=== PATIENT | male | born 1955 | race Caucasian/White ===

== ENCOUNTER 2016-08-14 10:48 | Emergency (ER) | payer OTHER ==
[2016-08-14] MEDS ORDERED: NS 0.9% 1000 ML* 1,000 ML IV SCH ×2 (11:00→15:15)
[2016-08-14 11:34] LABS: Hematocrit 46 % (42-52); Hemoglobin 15.6 g/dl (14.0-18.0); Mean Corpuscular HGB Conc 34 g/dl (31-36); Mean Corpuscular Hemoglobin 30 pg (27-31); Mean Corpuscular Volume 90 fL (80-94); Mean Platelet Volume 8 um3 (7.4-10.4); Red Blood Count 5.14 10^6/ul (4.0-5.4); Red Cell Distribution Width 13 % (10.5-15); White Blood Count 6.3 10^3/ul (3.5-10.8)
[2016-08-14 11:50] LABS: ALT 37 U/L (7-52); AST 23 U/L (13-39); Albumin 4.3 g/dL (3.2-5.2); Alkaline Phosphatase 88 U/L (34-104); Anion Gap 8 mmol/L (2-11); BUN/Creatinine Ratio 17.2 (8-20); Blood Urea Nitrogen 15 mg/dL (6-24); C Reactive Protein < 1.00 mg/L (< 5.00); CO2 Carbon Dioxide 23 mmol/L (22-32); Calcium 9.6 mg/dL (8.6-10.3); Chloride 104 mmol/L (101-111); Creatine Kinase 307 U/L (10-223); EGFR African American 114.7 (>60); EGFR Non-African American 89.2 (>60); Globulin 2.7 g/dL (2-4); Glucose 105 mg/dL (70-100); Lipase 17 U/L (11.0-82.0); Magnesium 1.9 mg/dL (1.9-2.7); Potassium 4.3 mmol/L (3.5-5.0); Sodium 135 mmol/L (133-145)
[2016-08-14 12:18] LABS: TSH (Thyroid Stimulating Horm) 3.72 mcIU/mL (0.34-5.60)
--- NOTE | 2016-08-14 12:33 | RAD ---
INDICATION: Palpitations COMPARISON: April 05, 2016 TECHNIQUE: An AP portable view obtained at 1145 hours is submitted. FINDINGS: Bones/Soft Tissues: There are no acute bony findings. Cardiomediastinal: The cardiomediastinal silhouette is normal. Lungs: There are no infiltrates. Pleura: There are no pleural effusions. Other: None IMPRESSION: NORMAL CHEST.
--- NOTE | 2016-08-14 14:40 | ED ---
Antonio Higgins Erika, scribed for Brenda Wood MD on 08/14/16 at 1356 . Palpitations / Dysrhythmia - HPI Summary HPI Summary: Patient is a 61-year-old male presenting to the ED with his daughter with a CC of palpitations. Pt was sent to ED from cardiac rehab. Patient reports that he had an elective cardiac catheterization in March 2016 and had [address] Flores and Dr. Caldwell. Patient has followed up with Dr. Caldwell since then, and has been in cardiac rehab. Pt states approx 1month ago his toprol dose was increased 25mg to 50mg for PVC. Today, patient walked into cardiac rehab, and the tech noticed his HR was 115, so patient was sent to the ED. He states he has felt palpitations. Pt does admit to intermittent headaches associated with lightheadedness today which spontaneously resolve, as well as fatigue, SOB with exertion, and weakness. Patient also reports a few days ago developed myalgias in the chest and shoulders as well - he states soreness is not associated with activity, and prevented him from sleeping. He states feels like muscles are sore. Pt also notes decreased appetite the past few days. Today, pt reports that his chest pain is brought on by moving his arms - he feels pain in the right anterior chest and in the bilateral shoulders. Pt states this pain, SOB, and fatigue made it difficult to work today , as pt has to lift heavy things at work. Patient denies diarrhea. He states he has been taking his medications, which are metoprolol, brilinta, and lipitor, which he started taking after the cardiac cath. At triage pt was reported to have a variable HR 38-98 Pt also notes diffuse bruises recently. FHx - father of [place] at age 50, brother at 61. Patient quit smoking 12 years ago, and occasionally drinks. - History of Current Complaint Chief Complaint: EDDysrhythmPalp Time Seen by Provider: 08/14/16 13:36 Hx Obtained From: Patient, Family/Light Cleaner - Daughter Onset/Duration: Lasting Hours, Still Present Timing: Intermittent Episodes Lasting: - minutes Severity Currently: Moderate Character: Fast, Pounding Associated Signs & Symptoms: Lightheadedness, Chest Pain, Shortness of Breath - Risk Factors Cardiac: Hypertension - Allergy/Home Medications Allergies/Adverse Reactions: Allergies Allergy/AdvReac Type Severity Reaction Status Date / Time No Known Allergies Allergy Verified 08/05/14 15:24 Home Medications: Home Medications Metoprolol Succinate XL TAB* [Toprol XL TAB*] 25 mg PO BID 08/14/16 [History Confirmed 08/14/16] Ticagrelor* [Brilinta 90 MG*] 90 mg PO BID 08/14/16 [History Confirmed 08/14/16] PMH/Surg Hx/FS Hx/Imm Hx Endocrine/Hematology History: Reports: Hx Anticoagulant Therapy - Berlinta Denies: Hx Thyroid Disease, Hx Anemia, Hx Unexplained Bleeding Cardiovascular History: Reports: Hx Angioplasty, Hx Coronary Artery Disease - with stents, Hx Deep Vein Thrombosis - superficial vein L leg 2012, Hx Hypercholesterolemia Opthamlomology History: Reports: Hx Contacts or Glasses - glasses for reading, Other Sensory Impairments - Tinnitus, right ear Denies: Hx Cataracts, Hx Eye Injury, Hx Eye Prosthesis, Hx Glaucoma, Hx Legally Blind, Hx Macular Degeneration, Hx Vision Problem - Surgical History Surgery Procedure, Year, and Place: Cardiac stents Mar 2016 Infectious Disease History: No Infectious Disease History: Denies: Hx Clostridium Difficile, Hx Hepatitis, Hx Human Immunodeficiency Virus (HIV), Hx of Known/Suspected MRSA, Hx Shingles, Hx Tuberculosis, History Other Infectious Disease, Traveled Outside the [place] in Last 30 Days - Family History Known Family History: Positive: Cardiac Disease - Social History Occupation: Employed Part-time Alcohol Use: Rare Hx Substance Use: No Substance Use Type: Reports: None Hx Tobacco Use: Yes Smoking Status (MU): Former Smoker Type: Cigarettes Review of Systems Positive: Fatigue Eyes: Negative ENT: Negative Positive: Palpitations, Chest Pain Positive: Shortness Of Breath. Negative: Cough Positive: Other - decreased appetite. Negative: Diarrhea Genitourinary: Negative Positive: Myalgia - diffuse Positive: Bruising Neurological: Other - lightheadedness Positive: Headache, Weakness Psychological: Normal All Other Systems Reviewed And Are Negative: Yes Physical Exam Triage Information Reviewed: Yes Vital Signs On Initial Exam: Initial Vitals Temp Pulse Resp BP Pulse Ox 98.1 F 93 18 114/69 100 08/14/16 10:51 08/14/16 10:51 08/14/16 10:51 08/14/16 10:51 08/14/16 10:51 Vital Signs Reviewed: Yes Appearance: Positive: Well-Appearing, No Pain Distress Skin: Positive: Warm, Skin Color Reflects Adequate Perfusion, Dry, Other - Pt with ecchymosis to right knee, right elbow, left humerus - various stages Head/Face: Positive: Normal Head/Face Inspection Eyes: Positive: Normal, EOMI, AJ ENT: Positive: Hearing grossly normal, Pharynx normal Neck: Positive: Supple, Nontender, No Lymphadenopathy Respiratory/Lung Sounds: Positive: Clear to Auscultation, Breath Sounds Present. Negative: Wheezes Cardiovascular: Positive: Normal, RRR. Negative: Murmur Abdomen Description: Positive: Nontender, No Organomegaly, Soft Bowel Sounds: Positive: Present Musculoskeletal: Positive: Normal, Strength/ROM Intact Neurological: Positive: Normal, Sensory/Motor Intact, Alert, Oriented to Person Place, Time Psychiatric: Positive: Normal, Affect/Mood Appropriate AVPU Assessment: Alert - [place] Coma Scale Best Eye Response: 4 - Spontaneous Best Motor Response: 6 - Obeys Commands Best Verbal Response: 5 - Oriented Coma Scale Total: 15 Diagnostics - Vital Signs Vital Signs Temp Pulse Resp BP Pulse Ox 08/14/16 11:49 98.1 F 98 16 100/75 97 08/14/16 11:30 70 17 100/75 98 08/14/16 11:20 92 15 99 08/14/16 11:18 101/59 08/14/16 10:51 98.1 F 93 18 114/69 100 - Laboratory Lab Results: Lab Results 08/14/16 08/14/16 08/14/16 Range/Units 11:22 11:22 11:22 WBC 6.3 (3.5-10.8) 10^3/ul RBC 5.14 (4.0-5.4) 10^6/ul Hgb 15.6 (14.0-18.0) g/dl Hct 46 (42-52) % MCV 90 (80-94) fL MCH 30 (27-31) pg MCHC 34 (31-36) g/dl RDW 13 (10.5-15) % Plt Count 234 (150-450) 10^3/ul MPV 8 (7.4-10.4) um3 Neut % (Auto) 71.3 (38-83) % Lymph % (Auto) 16.7 L (25-47) % Wharton % (Auto) 10.9 H (1-9) % Eos % (Auto) 0.7 (0-6) % Baso % (Auto) 0.4 (0-2) % Absolute Neuts (auto) 4.5 (1.5-7.7) 10^3/ul Absolute Lymphs (auto) 1.0 (1.0-4.8) 10^3/ul Absolute Monos (auto) 0.7 (0-0.8) 10^3/ul Absolute Eos (auto) 0 (0-0.6) 10^3/ul Absolute Basos (auto) 0 (0-0.2) 10^3/ul Absolute Nucleated RBC 0 10^3/ul Nucleated RBC % 0 INR (Anticoag Therapy) 0.98 (0.89-1.11) APTT 27.0 (26.0-36.3) seconds D-Dimer, Quantitative < 200 (Less Than 230) ng/mL Sodium 135 (133-145) mmol/L Potassium 4.3 (3.5-5.0) mmol/L Chloride 104 (101-111) mmol/L Carbon Dioxide 23 (22-32) mmol/L Anion Gap 8 (2-11) mmol/L BUN 15 (6-24) mg/dL Creatinine 0.87 (0.67-1.17) mg/dL Est GFR ( Amer) 114.7 (>60) Est GFR (Non-Af Amer) 89.2 (>60) BUN/Creatinine Ratio 17.2 (8-20) Glucose 105 H (70-100) mg/dL Lactic Acid (0.5-2.0) mmol/L Calcium 9.6 (8.6-10.3) mg/dL Magnesium 1.9 (1.9-2.7) mg/dL Total Bilirubin 1.10 H (0.2-1.0) mg/dL AST 23 (13-39) U/L ALT 37 (7-52) U/L Alkaline Phosphatase 88 (34-104) U/L Total Creatine Kinase 307 H (10-223) U/L CK-MB (CK-2) 5.5 (0.6-6.3) ng/mL Troponin I 0.00 (<0.04) ng/mL C-Reactive Protein < 1.00 (< 5.00) mg/L B-Natriuretic Peptide ( - 100) pg/mL Total Protein 7.0 (6.4-8.9) g/dL Albumin 4.3 (3.2-5.2) g/dL Globulin 2.7 (2-4) g/dL Albumin/Globulin Ratio 1.6 (1-3) Lipase 17 (11.0-82.0) U/L TSH 3.72 (0.34-5.60) mcIU/mL 08/14/16 08/14/16 Range/Units 11:22 11:22 WBC (3.5-10.8) 10^3/ul RBC (4.0-5.4) 10^6/ul Hgb (14.0-18.0) g/dl Hct (42-52) % MCV (80-94) fL MCH (27-31) pg MCHC (31-36) g/dl RDW (10.5-15) % Plt Count (150-450) 10^3/ul MPV (7.4-10.4) um3 Neut % (Auto) (38-83) % Lymph % (Auto) (25-47) % Wharton % (Auto) (1-9) % Eos % (Auto) (0-6) % Baso % (Auto) (0-2) % Absolute Neuts (auto) (1.5-7.7) 10^3/ul Absolute Lymphs (auto) (1.0-4.8) 10^3/ul Absolute Monos (auto) (0-0.8) 10^3/ul Absolute Eos (auto) (0-0.6) 10^3/ul Absolute Basos (auto) (0-0.2) 10^3/ul Absolute Nucleated RBC 10^3/ul Nucleated RBC % INR (Anticoag Therapy) (0.89-1.11) APTT (26.0-36.3) seconds D-Dimer, Quantitative (Less Than 230) ng/mL Sodium (133-145) mmol/L Potassium (3.5-5.0) mmol/L Chloride (101-111) mmol/L Carbon Dioxide (22-32) mmol/L Anion Gap (2-11) mmol/L BUN (6-24) mg/dL Creatinine (0.67-1.17) mg/dL Est GFR ( Amer) (>60) Est GFR (Non-Af Amer) (>60) BUN/Creatinine Ratio (8-20) Glucose (70-100) mg/dL Lactic Acid 1.2 (0.5-2.0) mmol/L Calcium (8.6-10.3) mg/dL Magnesium (1.9-2.7) mg/dL Total Bilirubin (0.2-1.0) mg/dL AST (13-39) U/L ALT (7-52) U/L Alkaline Phosphatase (34-104) U/L Total Creatine Kinase (10-223) U/L CK-MB (CK-2) (0.6-6.3) ng/mL Troponin I (<0.04) ng/mL C-Reactive Protein (< 5.00) mg/L B-Natriuretic Peptide 130 H ( - 100) pg/mL Total Protein (6.4-8.9) g/dL Albumin (3.2-5.2) g/dL Globulin (2-4) g/dL Albumin/Globulin Ratio (1-3) Lipase (11.0-82.0) U/L TSH (0.34-5.60) mcIU/mL Result Diagrams: 08/14/16 11:22 08/14/16 11:22 Lab Statement: Any lab studies that have been ordered have been reviewed, and results considered in the medical decision making process. - Radiology CXR Radiology Interpretation Completed By: Radiologist - IMPRESSION: NORMAL CHEST. - EKG 11:00 Cardiac Rate: NL - at 99 bpm EKG Rhythm: Sinus Rhythm Ectopy: PVCs, PACs EKG Interpretation: No ST/T wave changes. Atrial pause Course/Dx - Course Assessment/Plan: Pt presents with complaint of body aches - chest wall, shoulder increasing over several days as well as fatigue, palpitations, and SOB. Pt states went to cardiac rehab today and was sent to ED - report of HR 115. Upon exam, pt states feels fatigue but no other complaints. I suspect mylagias may be related to lipitor. I spoke with Dr. Caldwell - states EKG at cardiac rehab was a fib. recommend admit, have cards eval pt -. tsh, trop, potassium, mag wnl - Diagnoses Provider Diagnoses: Palpitations, Myalgia - Physician Notifications Discussed Care Of Patient With: Dr. Caldwell (cardiology) at 14:21 - discussed case. recommends admission. Dr. Hart (hospitalist) at 14:24 - agrees to admit. Discharge - Discharge Plan Condition: Stable Disposition: ADMITTED TO [facility] Referrals: Asa Doll MD [Primary Care Provider] - The documentation as recorded by the Antonio kilpatrick Erika accurately reflects the service I personally performed and the decisions made by Israel cerna Laura, MD.
[2016-08-14] MEDS ORDERED: Al Hydrox/Mg Hydrox/Simet LIQ* 30 ML UDC PO PRN (15:04)
[2016-08-14] MEDS ORDERED: Magnesium Hydroxide LIQ* 30 ML UDC PO PRN (15:04)
[2016-08-14] MEDS ORDERED: Acetaminophen TAB* 325 MG PO PRN (15:04)
[2016-08-14] MEDS ORDERED: Temazepam CAP* 15 MG PO PRN (15:04)
[2016-08-14] MEDS ORDERED: Rivaroxaban TAB(*) 20 MG TAB PO SCH (16:00)
[2016-08-14 16:47] VITALS: BP 105/77
[2016-08-14] MEDS ORDERED: Ticagrelor* 90 MG TAB PO SCH (21:00)
[2016-08-14] MEDS ORDERED: Metoprolol Succinate XL TAB* 25 MG PO SCH (21:00)
[2016-08-14] MEDS ORDERED: Heparin VIAL(*) 5000 UNITS/ML VIAL (FIVE THOUSAND) SUBCUT SCH (22:00)
--- NOTE | 2016-08-14 22:46 | HP ---
ADDENDUM NOW INCLUDED ON THIS REPORT HISTORY AND PHYSICAL: DATE OF ADMISSION: 08/14/16 - EMERGENCY DEPT PRIMARY CARE PROVIDER: Dr. Doll. CHIEF COMPLAINT: "Fast heart rate." HISTORY OF PRESENT ILLNESS: Timbo Pompa is a 61-year-old male with a history of coronary artery disease and three stents placed in March [address] Flores who presents today complaining that a fast heart rate was noted on telemetry monitoring when he was preparing for cardiac rehab today. The patient stated he had been feeling tired for the past several days and he had noted myalgias. He stated that all of his muscles are sore including his shoulders and legs. He denies any shortness of breath or chest pain. He was today preparing to undergo cardiac rehab and when telemetry monitoring was checked on the patient, the patient was noted to be in atrial fibrillation with a heart rate in the 90s. When he presented to the ED, it was noted that his heart rate was in the 30s, but that was evaluated on pulse oximetry machine and it is possible that the pulse oximeter did not capture the heart beats due to atrial fibrillation. Nevertheless, the patient had been in fairly controlled heart rate in the 90s during the ED visit. His systolic pressures were in the low 100s. The patient is going to be placed on observation with a diagnosis of atrial fibrillation. PAST MEDICAL HISTORY: 1. Superficial vein thrombosis in 2005 in the left leg treated with Coumadin by Dr. Doll for 1 month. 2. Cardiac catheterization in March 2016, status post 3 stents, 1 placed in the LAD and 2 stents placed in the circumflex. 3. History of dyslipidemia. 4. History of hypertension. MEDICATIONS: Include: 1. Toprol-XL 25 mg daily. 2. Aspirin 81 mg daily. 3. Atorvastatin 40 mg daily. 4. Nitroglycerin on a p.r.n. basis. 5. Brilinta 90 mg twice a day. ALLERGIES: No known drug allergies. FAMILY HISTORY: Positive for father who of acute SC at the age of 90. Mother with a history of hypothyroidism. SOCIAL HISTORY: The patient denies any tobacco or drug use. He drinks rarely. 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 He is single and his daughter, Anuja, is his surrogate. REVIEW OF SYSTEMS: Please see history of present illness. All the remaining 14 systems were reviewed with the patient and were otherwise negative. PHYSICAL EXAMINATION GENERAL: This is a very pleasant 61-year-old male who is in no acute distress. Alert, awake, and oriented x3. VITAL SIGNS: Blood pressure of 103/64, heart rate of 96 and irregularly irregular, respiratory rate 16, oxygen saturation 98% on room air, and temperature of 98.1. HEENT: Head: Atraumatic, normocephalic. Eyes: Pupils equal, reactive to light and accommodation. Oropharynx clear. Mucosa moist. NECK: Supple. No JVD, no bruit bilaterally. RESPIRATORY: Clear to auscultation bilaterally. CARDIOVASCULAR: Irregularly irregular rhythm. No murmur. ABDOMEN: Soft, nontender. Bowel sounds present in all 4 quadrants. EXTREMITIES: There is no edema. Pulses are +2 bilaterally. No clubbing or cyanosis. NEUROLOGIC EVALUATION: Speech clear. Cranial nerves II through XII grossly intact. Motor strength is 5/5 bilaterally. LABORATORY DATA: Show a white blood cell count of 6.3, hemoglobin 15.6, hematocrit 46, and platelet count 234. D-dimer of below 200. PTT of 27, INR of 0.98. Sodium was 135, potassium 4.3, chloride 104, carbon dioxide 23, BUN 15, creatinine 0.87. Liver function tests are unremarkable apart from a mild elevation of total bilirubin of 4.1. Total CPK is 307. C-reactive protein of below 1. Troponin of 0. Brain natriuretic peptide was 130. Magnesium of 1.9. TSH of 3.72. EKG showed atrial fibrillation, heart rate of 99 beats per minute with PVC's. Portable chest x-ray, impression: "Normal chest." ASSESSMENT AND PLAN: A 61-year-old male with a history of coronary artery disease who presents with atrial fibrillation of unknown duration. The patient is symptomatic of myalgias and shortness of breath. I suspect the myalgias may be due to Lipitor. Discussed the case with Dr. Vazquez. The patient's CHADS-VASc score is 1. At this point, Dr. Vazquez recommended anticoagulation with Xarelto. The patient is also going to be continued on aspirin and Brilinta for his coronary artery disease. His Toprol-XL is going to be continued on a previous dose. The patient also is going to be placed on gentle hydration due to low systolic blood pressures. There is no electrolyte abnormality or TSH abnormality that predisposed this patient to atrial fibrillation. At this point, the patient will most likely undergo a MAURY cardioversion in the morning. In regards to the patient's coronary artery disease, currently asymptomatic. We will continue aspirin and Brilinta. For hypertension, his Toprol-XL is going to be continued. For DVT prophylaxis, the patient is going to be placed on Xarelto. Code status: The patient's code status is full and surrogate is his daughter. TIME SPENT: Approximately 65 minutes were spent on admission of this patient, more than half that time was spent [id number] with the patient during the interview and physical exam. ADDENDUM: Please note that the patient was seen by Dr. Vazquez in the emergency department and it was decided by the lab asst and the patient that the patient can be discharged and followed up by Dr. Vazquez as an outpatient with outpatient cardioversion. Dr. Vazquez already called in a prescription for Xarelto for the patient's pharmacy. As per Dr. Vazquez's recommendation, the remaining medications are unchanged apart from the addition of Xarelto at 20 mg daily. The patient is being discharged from the emergency department and he was never admitted. CC: Dr. Doll; Dr. Flores; Dr. Caldwell; Dr. Vazquez* [id number]/CPS #: [id number]/CPS #: [id number] [facility]
--- NOTE | 2016-08-14 23:03 | HP ---
HISTORY AND PHYSICAL:* ADDENDUM: Please note that the patient was seen by Dr. Vazquez in the emergency department and it was decided by the cotton machine operator and the patient that the patient can be discharged and followed up by Dr. Vazquez as an outpatient with outpatient cardioversion. Dr. Vazquez already called in a prescription for Xarelto for the patient's pharmacy. As per Dr. Vazquez's recommendation, the remaining medications are unchanged apart from the addition of Xarelto at 20 mg daily. The patient is being discharged from the emergency department and he was never admitted. [id number]/CPS #: [id number] MTDD
--- NOTE | 2016-08-14 23:03 | CONS ---
CARDIOLOGY CONSULTATION: DATE OF CONSULTATION: 08/14/16 INDICATION FOR CONSULTATION: Atrial fibrillation. HISTORY OF PRESENT ILLNESS: The patient is a 61-year-old male with a history of coronary artery disease, history of stenting to his LAD and circumflex artery back in 2016 who was at cardiac rehab today and was noted to be in atrial fibrillation. In speaking with the patient, the patient states that he has been feeling more fatigued over the last couple of days. He denies any angina. He denies any palpitations. He denies any changes in sleep. He denies any orthopnea. He denies any lightheadedness, dizziness, or syncope. He just has felt more fatigued. The patient has been taking all of his usual medications. PAST MEDICAL HISTORY: 1. Significant for a DVT in 2015. 2. Coronary artery disease. 3. Cardiac catheterization in March 2016 demonstrated a 90% LAD stenosis and an 80% left circumflex artery stenosis. He had stents to both arteries. An echocardiogram in March 2016 demonstrated normal LV function. No significant valvular abnormalities. OUTPATIENT MEDICATIONS: 1. Toprol-XL 25 mg a day. 2. Aspirin 81 mg a day. 3. Atorvastatin 40 mg a day. 4. Nitroglycerin p.r.n. 5. Brilinta 90 mg b.i.d. ALLERGIES: No known drug allergies. FAMILY HISTORY: Father of a myocardial infarction at 65. Mother has hypothyroidism. SOCIAL HISTORY: He is a previous smoker, he quit 12 years ago. Rare alcohol intake. He does exercise regularly. He walks twice a week. PHYSICAL EXAMINATION: Height is 5 feet 7 inches, weight is 161 pounds. Temperature 98.1, heart rate is 93, blood pressure is 114/69, respiratory rate is 18, oxygen saturation 100% on room air. Sclerae anicteric. Oropharynx is pink without erythema. Carotids are 2+ without bruits. JVD is normal. Thyroid is normal. Cardiac Exam: S1, S2 without any murmurs, rubs, or gallops. His rhythm is irregular. There is no murmurs, rubs, gallops. PMI is normal. Lungs are clear to auscultation bilaterally. No dullness to percussion. Abdomen is soft, nontender, and nondistended with normoactive bowel sounds. Extremities show no edema. He has 2+ pulses throughout. The patient is awake, alert, and oriented. He moves all 4 extremities equally. LABORATORY STUDIES: Chemistries within normal limits. Troponin level is 0. BNP is 130. TSH 3.7. CBC within normal limits. EKG demonstrates atrial fibrillation, otherwise unremarkable. IMPRESSION: A 61-year-old male with a history of coronary artery disease, history of stenting in March 2016, who came to the emergency room because of an abnormal rhythm noted at cardiac rehab. The patient has been experiencing fatigue, but no other significant symptoms. PLAN: For now, my recommendation is I have the patient started on Xarelto. I do not think any other medications are necessary. His heart rate and blood pressure are under good control. The patient will be scheduled as an outpatient for a transesophageal echocardiogram and cardioversion. The patient will follow up with Dr. Caldwell regarding length of anticoagulation and potential for antiarrhythmic medications if necessary. CC: Dr. Doll; Dr. Caldwell* [id number]/[facility] #: [id number] MTDD
[2016-08-15] MEDS ORDERED: Aspirin EC Low Dose* 81 MG TAB.EC PO SCH (09:00)
== END 2016-08-14 16:37 | disposition short-term general hospital (02) ==
LOC: ED 10:48
DX: R00.2 Palpitations (principal); M79.1 Myalgia; Z79.01 Long term (current) use of anticoagulants; I25.10 Atherosclerotic heart disease of native coronary artery without angina pectoris; Z87.891 Personal history of nicotine dependence; Z82.49 Family history of ischemic heart disease and other diseases of the circulatory system; I48.91 Unspecified atrial fibrillation; Z86.718 Personal history of other venous thrombosis and embolism
CPT/HCPCS: 36415; 71010; 80053; 82550; 82553; 83605; 83690; 83735; 83880; 84443; 84484; 85025; 85379; 85610; 85730; 86140; 93005; 96360; 99284